=== PATIENT | female | born 1965 | race Caucasian/White ===

== ENCOUNTER 2016-08-04 07:54 | Day surgery (SDC) | payer OTHER ==
[2016-08-04] MEDS ORDERED: CELECOXIB 100 MG CAPSULE PO ONE (08:01)
[2016-08-04] MEDS ORDERED: LACTATED RINGERS 1,000 ML IV ONE ×2 (08:32→09:46)
[2016-08-04] MEDS ORDERED: ONDANSETRON 4 MG/2 ML VIAL IVP ONE (09:10)
[2016-08-04] MEDS ORDERED: LIDOCAINE-MPF 2% 5 ML VIAL IM ONE (09:10)
[2016-08-04] MEDS ORDERED: DEXAMETHASONE 4 MG/ML VIAL IVP ONE (09:10)
[2016-08-04] MEDS ORDERED: MIDAZOLAM 2 MG/2 ML VIAL IVP ONE (09:10)
[2016-08-04] MEDS ORDERED: KETOROLAC 30 MG/ML VIAL IVP ONE (09:10)
[2016-08-04] MEDS ORDERED: fentaNYL 100 MCG/2 ML VIAL IVP ONE (09:10)
[2016-08-04] MEDS ORDERED: PROPOFOL 200 MG/20 ML VIAL IVP ONE (09:10)
[2016-08-04] MEDS ORDERED: KETOROLAC 15 MG/ML VIAL ONE (10:16)
== END 2016-08-04 07:55 | disposition home or self-care (01) ==
PROC: 0UDB8ZZ Extraction of Endometrium, Via Natural or Artificial Opening Endoscopic (ICD-10-PCS; principal; 2016-08-04 09:00)
DX: N95.0 Postmenopausal bleeding (principal); Z79.890 Hormone replacement therapy; Z88.0 Allergy status to penicillin; N85.8 Other specified noninflammatory disorders of uterus; M19.90 Unspecified osteoarthritis, unspecified site; Z79.1 Long term (current) use of non-steroidal anti-inflammatories (NSAID)
CPT/HCPCS: 58558; 81025; A9270; J7120

== ENCOUNTER 2017-04-26 12:30 | Outpatient (CLI) | payer OTHER ==
[2017-04-26 19:15] LABS: BASOPHILS % (AUTO) 0.7 %; EOSINOPHILS % (AUTO) 0.8 %; HCT - HEMATOCRIT 43.6 % (37.0-47.0); HGB - HEMOGLOBIN 14.4 g/dL (12.0-16.0); LYMPHOCYTES # (AUTO) 1.7 10^3/uL (1.5-3.5); LYMPHOCYTES % (AUTO) 33.1 %; MEAN CORPUSCULAR HEMOGLOBIN 31.9 pg (27.0-31.0); MEAN CORPUSCULAR VOLUME 96.5 fL (81.0-99.0); MEAN PLATELET VOLUME 9.7 fL (7.9-10.8); MONOCYTES # (AUTO) 0.4 10^3/uL (0.0-1.0); MONOCYTES % (AUTO) 7.3 %; NEUTROPHILS % (AUTO) 58.1 %; RED BLOOD COUNT 4.52 10^6/uL (4.20-5.40); RED CELL DISTRIBUTION WIDTH 13.3 % (12.0-15.0); UNCORRECTED WHITE BLOOD COUNT 5.2 x10^3/uL; WHITE BLOOD COUNT 5.2 x10^3/uL (4.8-10.8)
[2017-04-26 19:42] LABS: ALBUMIN/GLOBULIN RATIO 1.3 (1.0-2.2); BUN - BLOOD UREA NITROGEN 10 mg/dL (6-20); CALCIUM 9.9 mg/dL (8.5-10.3); CARBON DIOXIDE - CO2 30 mmol/L (21-32); CHLORIDE 99 mmol/L (101-111); CREATININE 1.1 mg/dL (0.4-1.0); GFR - MDRD 52 (>89); GLUCOSE 103 mg/dL (70-100); POTASSIUM 3.7 mmol/L (3.5-5.0); SODIUM 138 mmol/L (135-145); TOTAL PROTEIN 7.7 g/dL (6.7-8.2)
== END 2017-04-26 12:31 | disposition home or self-care (01) ==
LOC: LAB.WCP 12:30
PROVIDERS: ATTEND Physician Assistant Medical
DX: R42 Dizziness and giddiness (principal)
CPT/HCPCS: 36415; 80053; 84443; 85025

== ENCOUNTER 2017-06-08 17:12 | Outpatient (CLI) | payer BC ==
--- NOTE | 2017-06-09 11:52 | Ultrasound Report ---
ULTRASOUND RIGHT FOOT: 06/08/2017 CLINICAL INDICATION: Swelling, palpable lump. TECHNIQUE: Real-time scanning was performed with business representative static images obtained. FINDINGS: Ultrasound of the plantar surface of the right foot was performed. At the site of palpabl e abnormality, there is a 0.9 x 0.7 x 0.3 cm hypoechoic nodule in the subcutaneous fat. It does demo nstrate flow. No definite foreign body is appreciated. IMPRESSION: SOLID HYPOECHOIC NODULE CORRELATING WITH THE PALPABLE ABNORMALITY. MRI WITH AND WITHOUT CONTRAST IS RECOMMENDED FOR FURTHER EVALUATION. JOB #: [id number] EXT JOB #:[id number]
== END 2017-06-08 17:13 | disposition home or self-care (01) ==
LOC: DI 17:12
PROVIDERS: ATTEND Family Medicine
DX: R22.41 Localized swelling, mass and lump, right lower limb (principal)
CPT/HCPCS: 76882

== ENCOUNTER 2017-09-30 15:27 | Outpatient (CLI) | payer BC ==
--- NOTE | 2017-10-04 17:04 | Mammography Report ---
DIGITAL BILATERAL SCREENING MAMMOGRAM: 09/30/2017 COMPARISON: Mammogram 12/07/2013. INDICATION: Screening exam. TECHNIQUE: Bilateral CC and MLO breast views. FINDINGS: The breast parenchyma is heterogeneously dense which may limit the sensitivity of mammography. No dominant mass, architectural distortion, or concerning cluster of microcalcifications are seen. IMPRESSION: 1. BI-RADS category 1, negative. 2. Recommend annual screening mammogram. STANDARD QUALIFYING STATEMENTS 1. This examination was reviewed with the aid of Computed-Aided Detection (CAD) . 2. A negative or benign imaging report should not delay biopsy if clinically suspicious findings are present. Consider surgical consultation if warranted. More than 5 % of cancers are not identified by imaging. 3. Dense breasts may obscure an underlying neoplasm. TD: 10/04/2017 17:02 ISSA
== END 2017-09-30 15:28 | disposition home or self-care (01) ==
LOC: DI.N 15:27
PROVIDERS: ATTEND Obstetrics & Gynecology
DX: Z12.31 Encounter for screening mammogram for malignant neoplasm of breast (principal)
CPT/HCPCS: 77067

== ENCOUNTER 2018-03-02 19:35 | Outpatient (CLI) | payer BC ==
--- NOTE | 2018-03-03 09:35 | Ultrasound Report ---
Procedure Date: 03/02/2018 Accession Number: [id number] / [id number] Procedure: US - Pelvic w/Transvaginal CPT Code: FULL RESULT: EXAM: Pelvic w/Transvaginal DATE: 03/02/2018 8:39 PM CLINICAL HISTORY: POSTMENOPAUSAL BLEEDING COMPARISON: None. TECHNIQUE: Realtime transabdominal imaging performed to identify the uterus and adnexa and as an overview of other pelvic structures, followed by transvaginal imaging for better assessment of the endometrium and/or adnexa, with static image documentation. FINDINGS: Uterus: 9.8 x 3.9 x 5.4 cm, volume 108 cc. Anteverted position. Normal overall size and echotexture. Masses: Intramural mass, 2.6 x 1.6 x 1.7 cm. Endometrium: 10 mm. Normal. Cervix: Nabothian cysts, otherwise unremarkable. Right Ovary/Adnexa: 1.1 x 0.9 x 1.2 cm, volume 0.6 cc. Normal echotexture. Blood flow is present. No adnexal mass is seen. Left Ovary/Adnexa: 1.4 x 1.1 x 1.2 cm, volume 1 cc. Normal echotexture. Blood flow is present. No adnexal mass is seen. Free Fluid: None. Other: None. IMPRESSION: Abnormal postmenopausal endometrium, upper limit of normal in the postmenopausal state without tamoxifen and is less than 5 mm. Uterine mass is felt to most likely represent a intramural fibroid. RADIA
== END 2018-03-02 19:36 | disposition home or self-care (01) ==
LOC: DI 19:35
PROVIDERS: ATTEND Obstetrics & Gynecology
DX: N95.0 Postmenopausal bleeding (principal)
CPT/HCPCS: 36415; 76830; 76856; 85025

== ENCOUNTER 2018-03-02 19:41 | Outpatient (CLI) | payer BC ==
[2018-03-02 20:01] LABS: BASOPHILS % (AUTO) 0.4 %; EOSINOPHILS # (AUTO) 0.1 10^3/uL (0.0-0.7); EOSINOPHILS % (AUTO) 1.8 %; HGB - HEMOGLOBIN 12.6 g/dL (12.0-16.0); LYMPHOCYTES # (AUTO) 2.3 10^3/uL (1.5-3.5); LYMPHOCYTES % (AUTO) 45.5 %; MEAN CORPUSCULAR HEMOGLOBIN 32.4 pg (27.0-31.0); MEAN CORPUSCULAR HGB CONC 34.8 g/dL (32.0-36.0); MEAN CORPUSCULAR VOLUME 93.2 fL (81.0-99.0); MEAN PLATELET VOLUME 8.9 fL (7.9-10.8); MONOCYTES # (AUTO) 0.4 10^3/uL (0.0-1.0); MONOCYTES % (AUTO) 7.5 %; NEUTROPHILS # (AUTO) 2.3 10^3/uL (1.5-6.6); NEUTROPHILS % (AUTO) 44.8 %; PLT - PLATELET COUNT 181 10^3/uL (130-450); RED BLOOD COUNT 3.88 10^6/uL (4.20-5.40); RED CELL DISTRIBUTION WIDTH 12.9 % (12.0-15.0); WHITE BLOOD COUNT 5.1 x10^3/uL (4.8-10.8)
== END 2018-03-02 19:42 | disposition home or self-care (01) ==
LOC: LAB 19:41
PROVIDERS: ATTEND Obstetrics & Gynecology
DX: N95.0 Postmenopausal bleeding (principal)
CPT/HCPCS: 36415; 85025

== ENCOUNTER 2019-02-12 09:52 | Outpatient (CLI) | payer BC ==
[2019-02-12 10:09] LABS: BASOPHILS % (AUTO) 0.5 %; EOSINOPHILS # (AUTO) 0.1 10^3/uL (0.0-0.7); EOSINOPHILS % (AUTO) 0.6 %; HGB - HEMOGLOBIN 14.3 g/dL (12.0-16.0); LYMPHOCYTES # (AUTO) 1.3 10^3/uL (1.5-3.5); LYMPHOCYTES % (AUTO) 15.1 %; MEAN CORPUSCULAR HGB CONC 33.1 g/dL (32.0-36.0); MEAN CORPUSCULAR VOLUME 96.6 fL (81.0-99.0); MEAN PLATELET VOLUME 10.8 fL (7.9-10.8); MONOCYTES # (AUTO) 0.5 10^3/uL (0.0-1.0); MONOCYTES % (AUTO) 5.9 %; NEUTROPHILS # (AUTO) 6.5 10^3/uL (1.5-6.6); NEUTROPHILS % (AUTO) 77.3 %; PLT - PLATELET COUNT 206 10^3/uL (130-450); RED BLOOD COUNT 4.47 10^6/uL (4.20-5.40); RED CELL DISTRIBUTION WIDTH 13.1 % (12.0-15.0); WHITE BLOOD COUNT 8.4 x10^3/uL (4.8-10.8)
== END 2019-02-12 09:53 | disposition home or self-care (01) ==
LOC: LAB 09:52
PROVIDERS: ATTEND Obstetrics & Gynecology
DX: Z01.812 Encounter for preprocedural laboratory examination (principal); N84.9 Polyp of female genital tract, unspecified
CPT/HCPCS: 36415; 85025

== ENCOUNTER 2019-02-14 07:37 | Day surgery (SDC) | payer BC ==
[2019-02-14] MEDS ORDERED: LACTATED RINGERS 1,000 ML IV ONE ×2 (08:12→10:20)
--- NOTE | 2019-02-14 08:26 | ANESTHESIA ---
Pre-Anesthesia VS, & Labs - Diagnosis endometrial polyp - Procedure myosure hysteroscopy, d&c, resection of polyp Vital Signs: Temp Pulse Resp BP Pulse Ox 36.6 C 79 18 128/91 H 100 02/14/19 07:47 02/14/19 07:47 02/14/19 07:47 02/14/19 07:47 02/14/19 07:47 Height 5 ft 4 in Weight (kg) 58.1 kg Body Mass Index 21.4 - NPO >8 hours - Is Patient ?: Not Applicable - Lab Results Lab results reviewed: Yes Home Medications and Allergies Home Medications: Ambulatory Orders Naproxen Sodium [Aleve] 220 ng PO DAILY PRN 02/12/19 Progesterone,Micronized [Prometrium] 200 mg PO DAILY 02/12/19 Estrogen,Con/M-Progest Acet [Prempro 0.3 mg-1.5 mg Tablet] 1 tab ORAL DAILY 08/04/16 Naproxen Sodium [Aleve] 220 ng PO DAILY PRN 02/12/19 Progesterone,Micronized [Prometrium] 200 mg PO DAILY 02/12/19 Allergies/Adverse Reactions: Allergies Allergy/AdvReac Type Severity Reaction Status Date / Time amoxicillin Allergy Rash Verified 02/14/19 07:56 Penicillins Allergy Rash Verified 04/02/14 00:26 lactose intol AdvReac Unknown Uncoded 02/12/19 10:05 Anes History & Medical History - Anesthetic History Anesthesia Complications: reports: No previous complications Family history of Anesthesia Complications: Denies Family history of Malignant Hyperthermia: Denies - Medical History Cardiovascular: reports: None Pulmonary: reports: None Gastrointestinal: reports: None Urinary: reports: None Musculoskeletal: reports: Osteoarthritis Endocrine/Autoimmune: reports: None Skin: reports: Other Smoking Status: Never smoker - Surgical History Gynecologic: Dilation and currettage Orthopedic: Other Exam General: Alert, Oriented x3, Cooperative, No acute distress Dental: Other (caps) Mouth Openin Fingerbreadth Neck Mobility: Normal Mallampati classification: II Thyromental Distance: 4-6 cm Respiratory: Lungs clear, Normal breath sounds, No respiratory distress, No acc essory muscle use Cardiovascular: Regular rate, Normal S1, Normal S2, No murmurs Plan Anesthesia Type: General Consent for Procedure(s) Verified and Reviewed: Yes Code Status: Attempt Resuscitation ASA classification: 2-Mild systemic disease Is this case an emergency?: No
[2019-02-14] MEDS ORDERED: HYDROcod/ACETAM 5/325 MG TABLET PO PRN (10:38)
[2019-02-14] MEDS ORDERED: ONDANSETRON 4 MG/2 ML VIAL IVP PRN (10:38)
[2019-02-14] MEDS: HYDROmorphone 0.5 MG/0.5 ML SYRINGE ONE ×2 (10:50→10:53)
--- NOTE | 2019-02-14 11:03 | OPERATIVE REPORT ---
DATE OF SERVICE: 02/14/2019 Physician: Jenaro Wills DO PREOPERATIVE DIAGNOSES 1. Postmenopausal bleeding. 2. Endometrial polyp. POSTOPERATIVE DIAGNOSES 1. Postmenopausal bleeding. 2. Endometrial polyp. PROCEDURE PERFORMED: Hysteroscopy with MyoSure polypectomy and D and C. ESTIMATED BLOOD LOSS: 20 mL SURGEON: Jenaro Wills DO DIVEMASTER: None. ANESTHESIA: General anesthetic. COUNTS: Sponge count was correct. Needle count was not indicated. PROCEDURE: Patient was taken to the operative suite, placed on the surgical table in supine position . Under general anesthetic, she was prepped and draped in the usual fashion. A timeout then took pl werner. Once a timeout was completed, a weighted speculum was placed in the vaginal vault and the cervi x visualized. The bladder had been drained of approximately 75 mL of clear yellow urine. The uterus was sounded to a depth of 8 cm. The cervix was dilated to 8 mm. The hysteroscope was now advanced through the strained endocervical canal into the endometrial cavity. Both cornua were visualized. T here seemed to be a small polyp in the fundus and another one to the patient's right lower fundus. N o other remarkable areas were noted. These were then resected with the MyoSure. Once all the tissue had been evacuated, the hysteroscope was now removed. Hysteroscopic photographic documentation of t he above findings, had taken place. The Telfa pad was now placed into the vaginal vault. The cervix now dilated to 1 cm and a sharp curette extended through the strain of the endocervical canal into t he endometrial cavity. The endometrial cavity was then thoroughly curetted with return of a small am ount of tissue, which was sent to pathology for evaluation. The single-tooth tenaculum was removed f rom the anterior lip of the cervix. No signs of bleeding were noted. Hemostasis followed. The vagi nal vault was then cleared of all blood, clots and debris. The weighted speculum was removed from th e vaginal vault. The patient was then taken to recovery room in stable condition. TD: 02/14/2019 10:47
[2019-02-14 11:40] VITALS: BP 141/95
[2019-02-14] MEDS ORDERED: IBUPROFEN 600 MG TABLET PO SCH (12:00)
== END 2019-02-14 07:38 | disposition home or self-care (01) ==
LOC: SDS 07:37
PROVIDERS: ATTEND Obstetrics & Gynecology
PROC: 0UDB7ZX Extraction of Endometrium, Via Natural or Artificial Opening, Diagnostic (ICD-10-PCS; 2019-02-14)
PROC: 0UB98ZZ Excision of Uterus, Via Natural or Artificial Opening Endoscopic (ICD-10-PCS; principal; 2019-02-14 09:00)
DX: N95.0 Postmenopausal bleeding (principal); N84.0 Polyp of corpus uteri
CPT/HCPCS: 58558; J1170; J7120